=== PATIENT | male | born 1995 | race African-American/Black ===

== ENCOUNTER 2019-01-01 07:54 | Emergency (ER) | payer SELFPAY ==
[~2019-01-01] VITALS: Ht 190.5 cm; Wt 100.0 kg
[2019-01-01 09:58] LABS: BASOPHILS % 0.2 % (0.0-2.0); EOSINOPHILS % 0.7 % (0.0-5.0); HEMATOCRIT. 48.9 % (42.0-52.0); HEMOGLOBIN. 16.4 g/dL (14.0-18.0); MEAN CORPUSCULAR HEMOGLOBIN 29.1 pg (28.0-32.0); MEAN CORPUSCULAR VOLUME 86.7 fL (80.0-94.0); MEAN PLATELET VOLUME 9.4 fl (7.4-10.4); MONOCYTES % 9.3 % (2.0-8.0); NEUTROPHILS % 72.8 % (40.0-76.0); PLATELET 193 x1000/uL (130-400); RED BLOOD CELL COUNT 5.64 mill/uL (4.7-6.1); RED CELL DISTRIBUTION WIDTH 14.3 % (11.6-14.6)
[2019-01-01 10:04] LABS: CHLORIDE 101 mEq/L (98-107)
[2019-01-01 10:07] LABS: ETHANOL BLOOD < 10 mg/dL
[2019-01-01 11:26] LABS: CLARITY URINE CLEAR (CLEAR); COLOR URINE DARK YELLOW (YELLOW); KETONES URINE 4+ (NEGATIVE); LEUKOCYTE ESTERASE URINE NEGATIVE (NEGATIVE); NITRITE URINE NEGATIVE (NEGATIVE); OCCULT BLOOD URINE TRACE (NEGATIVE); PROTEIN URINE 2+ (NEGATIVE); SPECIFIC GRAVITY URINE 1.037 (1.005-1.030)
[2019-01-01 11:41] LABS: *AMPHETAMINES SCREEN URINE NEGATIVE (NEGATIVE); *BARBITURATES SCREEN URINE NEGATIVE (NEGATIVE); *BENZODIAZEPINES SCREEN URINE NEGATIVE (NEGATIVE); *COCAINE SCREEN URINE NEGATIVE (NEGATIVE); CANNABINOID URINE SCREEN PRESUMTIVE POSITIVE (NEGATIVE); METHADONE URINE SCREEN NEGATIVE (NEGATIVE); OPIATES URINE SCREEN NEGATIVE (NEGATIVE); PHENCYCLIDINE URINE SCREEN NEGATIVE (NEGATIVE)
[2019-01-01] MEDS ORDERED: OLANZAPINE 10MG TABLET PO STA (14:32)
[2019-01-02 12:02] VITALS: BP 178/110
== END 2019-01-02 12:02 | disposition home or self-care (01) ==
LOC: ER 07:54
DX: T40.8X1A Poisoning by lysergide [LSD], accidental (unintentional), initial encounter (principal); F06.2 Psychotic disorder with delusions due to known physiological condition; R40.4 Transient alteration of awareness; F20.9 Schizophrenia, unspecified; E87.6 Hypokalemia; E86.0 Dehydration; F12.10 Cannabis abuse, uncomplicated; Z78.1 Physical restraint status; Y92.89 Other specified places as the place of occurrence of the external cause
CPT/HCPCS: 36415; 80305; 80320; 99283; 99284; G0480